=== PATIENT | male | born 2000 | race Caucasian/White ===

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

== ENCOUNTER 2019-02-09 12:29 | Emergency (ER) | payer OTHER ==
[~2019-02-09] VITALS: Ht 172.7 cm; Wt 76.7 kg
[2019-02-09 12:35] VITALS: BP 121/72
--- NOTE | 2019-02-09 12:37 | NUR ---
PT RETURNED TO LOBBY IN STABLE CONDITION
--- NOTE | 2019-02-09 13:20 | NUR ---
pt. ambulated to ER bed 2
--- NOTE | 2019-02-09 13:37 | NUR ---
18/M BIB SELF C/O RT WRIST PAIN AFTER LIFTING WEIGHTS YESTERDAY. PT ABLE TO MOVE ALL FINGERS. MED HX: CARPAL TUNNEL. PATIENT STATES PAIN OF 9/10 AT THIS TIME. PATIENT POSITIONED FOR COMFORT; HOB ELEVATED; BEDRAILS UP X2; BED DOWN. ER MD MADE AWARE OF PT STATUS.
[2019-02-09 14:48] VITALS: BP 120/68
== END 2019-02-09 14:48 | disposition home or self-care (01) ==
LOC: MED 12:29
DX: S63.501A Unspecified sprain of right wrist, initial encounter (principal); Z79.899 Other long term (current) drug therapy; X58.XXXA Exposure to other specified factors, initial encounter; Y93.89 Activity, other specified; Y92.39 Other specified sports and athletic area as the place of occurrence of the external cause; Y99.8 Other external cause status
CPT/HCPCS: 99283

== ENCOUNTER 2019-04-19 10:55 | Emergency (ER) | payer SELFPAY ==
[~2019-04-19] VITALS: Ht 175.3 cm; Wt 75.3 kg
[2019-04-19 10:57] VITALS: BP 139/91
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
--- NOTE | 2019-04-19 11:23 | NUR ---
Patient taken to CT scan via wheelchair by tech.
--- NOTE | 2019-04-19 12:27 | NUR ---
Dr. Mendoza evaluating patient at bedside.
[2019-04-19 12:44] VITALS: BP 128/78
--- NOTE | 2019-04-19 12:45 | NUR ---
Patient discharged with v/s stable. Written and verbal after care instructions given and explained. Patient alert, oriented and verbalized understanding of instructions. Ambulatory with steady gait. All questions addressed prior to discharge. ID band removed. Patient advised to follow up with PMD. Rx of norco and ibuprofen given. Patient educated on indication of medication including possible reaction and side effects. Opportunity to ask questions provided and answered.
== END 2019-04-19 12:45 | disposition home or self-care (01) ==
LOC: MED 10:55
DX: S13.4XXA Sprain of ligaments of cervical spine, initial encounter (principal); S09.90XA Unspecified injury of head, initial encounter; F12.10 Cannabis abuse, uncomplicated; M25.511 Pain in right shoulder; M25.512 Pain in left shoulder; Z79.899 Other long term (current) drug therapy; V43.52XA Car driver injured in collision with other type car in traffic accident, initial encounter; Y93.89 Activity, other specified; Y92.411 Interstate highway as the place of occurrence of the external cause; Y99.8 Other external cause status
CPT/HCPCS: 70450; 72125; 99284

== ENCOUNTER 2019-04-21 12:28 | Emergency (ER) | payer SELFPAY ==
[~2019-04-21] VITALS: Ht 175.3 cm; Wt 76.2 kg
[2019-04-21 12:32] VITALS: BP 137/71
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
--- NOTE | 2019-04-21 12:39 | NUR ---
PT AMBULATED TO ER BED 4
[2019-04-21] MEDS ORDERED: IBUPROFEN 400 MG TAB PO ONE (12:50)
--- NOTE | 2019-04-21 12:50 | NUR ---
[facility]
--- NOTE | 2019-04-21 13:03 | NUR ---
Patient discharged with v/s stable. Written and verbal after care instructions given and explained. Patient alert, oriented and verbalized understanding of instructions. Ambulatory with steady gait. All questions addressed prior to discharge. ID band removed. Patient advised to follow up with PMD. Opportunity to ask questions provided and answered.
[2019-04-21 13:05] VITALS: BP 137/71
== END 2019-04-21 13:03 | disposition home or self-care (01) ==
LOC: MED 12:28
DX: S16.1XXA Strain of muscle, fascia and tendon at neck level, initial encounter (principal); Z79.1 Long term (current) use of non-steroidal anti-inflammatories (NSAID); V49.49XA Driver injured in collision with other motor vehicles in traffic accident, initial encounter; W22.10XA Striking against or struck by unspecified automobile airbag, initial encounter; Y93.89 Activity, other specified; Y92.488 Other paved roadways as the place of occurrence of the external cause; Y99.8 Other external cause status
CPT/HCPCS: 99282